=== PATIENT | female | born 1960 | race African-American/Black ===

== ENCOUNTER 2016-12-11 12:15 | Emergency (ER) | payer OTHER, MEDICAID ==
[~2016-12-11] VITALS: Ht 170.2 cm; Wt 72.0 kg
[~2016-12-11 12:15] MED LIST: ALBU2.5V36 NEB; AMIO200T2 PO; ATOR20TA38 PO; FURO40TA4 PO; LISI-313 PO; METO25TA7 PO; METO50TA16 PO; PANT40TA3 PO; SPIR25TA PO; WARF10TA PO
[2016-12-11 13:07] VITALS: Ht 170.2 cm; Wt 72.0 kg
--- NOTE | 2016-12-11 14:20 | ERD ---
ER Documentation Chief Complaint Date/Time DATE: 12/11/16 TIME: 14:16 Chief Complaint REDDY X 1 WEEK, LVAT IN PLACE HPI This is an extremely pleasant 56-year-old female who presents to the emergency room with 1 week of headache. She describes it as gradual in onset, usually in the morning and the evenings, unilateral. She denies any photophobia, photophobia. She denies any jaw claudication or vision changes. No recent falls or injuries. The patient does take Coumadin secondary to left ventricular assist device. She denies any shortness of breath, chest pain, pleuritic pain, no lower extremity swelling. She has taken Tylenol with only minimal relief. She was sent to the emergency room from her clinic for a CT of the brain. ROS All systems reviewed and are negative except as per history of present illness. Medications Home Meds Active Scripts Acetamin/Butalbital/Caffeine* (Fioricet*) [id number] Tab, 1 TAB PO Q6H Y for PAIN, #30 TAB Prov:GHADA ELLER MD 12/11/16 Reported Medications Vit No.78/Iron/FA (Prenatabs FA Tablet) 1 Each Tablet, 1 EACH PO DAILY , TAB 12/11/16 Aspirin* (Aspirin* Chew) 81 Mg Tab.chew, 81 MG PO DAILY, TAB.CHEW 12/11/16 Carvedilol* (Carvedilol*) 3.125 Mg Tablet, 3.125 MG PO BID, #60 TAB 12/11/16 Spironolactone* (Aldactone*) 25 Mg Tablet, 25 MG PO DAILY, #30 TAB 04/25/16 Amiodarone Hcl* (Amiodarone Hcl*) 200 Mg Tablet, 200 MG PO DAILY, #30 TAB 04/08/16 Discontinued Reported Medications Atorvastatin Calcium* (Atorvastatin Calcium*) 20 Mg Tablet, 20 MG PO QHS, #30 TAB 04/25/16 Pantoprazole* (Protonix*) 40 Mg Tablet.dr, 40 MG PO DAILY, TAB 04/08/16 Lisinopril* (Lisinopril*) 5 Mg Tablet, 5 MG PO DAILY, #30 TAB 04/08/16 Metoprolol Succinate* (Toprol XL*) 50 Mg Tab.er.24h, 50 MG PO QHS, #30 TAB 04/08/16 Metoprolol Succinate* (Toprol XL*) 25 Mg Tab.sr.24h, 37.5 MG PO DAILY, #30 TAB 04/08/16 Discontinued Scripts Furosemide (Lasix) 40 Mg Tab, 40 MG PO BID for 30 Days, TAB for 5 days then back to 20 mg bid Prov:TAYLOR HILLS 04/26/16 Warfarin Sodium* (Coumadin*) 10 Mg Tablet, 10 MG PO DAILY for 30 Days, TAB no need for new prescription Prov:TAYLOR HILLS 04/26/16 Albuterol Sulfate* (Albuterol Sulfate* Neb) 0.5%-0.5 Ml Neb, 2.5 MG NEB Q6H, # 30 VIAL Prov:EDITH HOPE MD 04/08/16 Allergies Allergies: Coded Allergies: No Known Allergy (Verified , 12/11/16) PMhx/Soc History of Surgery: Yes (AICD 2013, TUBAL LIGATION) Anesthesia Reaction: No Hx Neurological Disorder: No Hx Respiratory Disorders: Yes (COPD) Hx Cardiac Disorders: Yes (HTN, OR, CHF, PACER FIRED 01/2015) Hx Psychiatric Problems: No Hx Miscellaneous Medical Probl: Yes (ON HOME MILRINONE AT 3ML/HR) Hx Alcohol Use: No Hx Substance Use: No Hx Tobacco Use: No FmHx Family History: No diabetes Physical Exam Vitals Vital Signs Date Time Temp Pulse Resp B/P Pulse Ox O2 Delivery O2 Flow Rate FiO2 12/11/16 13:07 96.2 92 18 111/85 100 Physical Exam General: Well developed, well nourished, no acute distress Head: Normocephalic, atraumatic, no tenderness over the temporal artery Eyes: Pupils equally reactive, EOM intact ENT: Moist mucous membranes Neck: Supple, no lymphadenopathy Respiratory: Lungs clear bilaterally, no distress Cardiovascular: RRR, no murmurs, rubs, or gallops Abdominal: Soft, non-tender, non-distended, no peritoneal signs : Deferred MSK: No edema, no unilateral swelling, 5/5 strength Neurologic: Alert and oriented, moving all extremities, normal speech, no focal weakness, no cerebellar signs Skin: No rash Psych: Normal mood Results 24 hrs Laboratory Tests Test 12/11/16 14:00 Activated Partial Thromboplast Time 44.5Sec INR International Normalized Ratio 2.34 Prothrombin Time 25.9Sec Prothrombin Time Ratio 2.0 Procedures/MDM EKG, MONITORS, & DIAGNOSTIC IMAGING: CT brain: No acute intracranial process LAB INTERPRETATION: Therapeutic INR MEDICAL DECISION MAKING: The patient presents with gradual onset, unilateral headache. The patient's headache is unlikely related to serious etiology. The patient does not exhibit any clinical signs or symptoms, and has no risk factors to suggest headache etiology such as subarachnoid hemorrhage, acute vertebral or carotid dissection , intracranial mass, epidural, subdural hematoma, dural venous sinus thrombosis , giant cell arteritis, or pseudotumor cerebri. Based on her description of symptoms this does not appear to be related to a significant or serious etiology. However, the patient does take Coumadin. Her last INR was approximately 1 week ago and therapeutic. Her primary care team was concerned that this may relate to intracranial hemorrhage and has requested a CT of the brain. She was sent to the emergency room for the study. She is otherwise exquisitely well-appearing, resting comfortably. She has a nonfocal neurologic exam. ER COURSE: The patient continues to be well-appearing her CT results are normal and have been faxed to her primary, referring provider. The patient is safe for discharge. I kept the patient and/or family informed of laboratory and diagnostic imaging results throughout the emergency room course. DISPOSITION PLAN: We discussed follow up with the patient's primary care doctor within 24 to 48 hours as needed. We also discussed return to the emergency room for worsening symptoms or worsening condition. Discharge Medications: Fioricet. I recommended that she avoid taking this medication until cleared by her primary and cardiology team. I do not want adverse drug interactions given her left ventricular assist device. The patient verbalizes understanding. Departure Diagnosis: Primary Impression: Headache Headache type: tension-type Headache chronicity pattern: acute headache Intractability: not intractable Qualified Code: G44.209 - Acute non intractable tension-type headache Additional Impression: Left ventricular assist device present Condition: Stable GHADA ELLER MD Dec 11, 2016 14:20
[2016-12-11] MEDS ORDERED: CARV3.1260 PO (14:40)
[2016-12-11] MEDS ORDERED: ASPI81TA3 PO (14:40)
[2016-12-11] MEDS ORDERED: PREN-17 PO (14:40)
[2016-12-11 14:44] LABS: INR 2.34; PROTIME 25.9 Sec (12.2-14.2)
[2016-12-11 14:45] LABS: PARTIAL THROMBOPLASTIN TIME 44.5 Sec (25.0-35.0)
[2016-12-11] MEDS ORDERED: FIORICET PO (14:56)
--- NOTE | 2016-12-11 15:01 | RADRPT ---
PROCEDURE: CT Brain without contrast. CLINICAL INDICATION: Patient experiencing a headache. TECHNIQUE: A multiplanar CT of the brain was performed on a CT scanner utilizing axial imaging fro m the skull base through the vertex without IV contrast. The CTDIvol is 44.9 mGy and the DLP is 630 .2 mGycm. One or more of the following dose reduction techniques were utilized: Automated exposure control, adjustment of the mA and/or kV according to patient size, use of iterative reconstruction technique. COMPARISON: None FINDINGS: No evidence of intracranial hemorrhage or abnormal extra-axial fluid collection. The brain parenchyma is normal attenuation morphology with preservation of sanchez white differentiatio n and age appropriate size of the ventricles and subarachnoid spaces. The posterior fossa contents, brainstem, craniocervical junction, orbits, pituitary axis, paranasal sinuses, mastoid air cells, and calvarium are unremarkable. IMPRESSION: 1. No intracranial hemorrhage or acute intracranial abnormality. 2. If clinical symptoms persist, MRI may be considered as follow-up. RPTAT:AAJJ Physician Adin Date Time Electronically viewed and signed by Physician Adin on 12/11/2016 15:00 MERI/
== END 2016-12-11 15:38 | disposition home or self-care (01) ==
LOC: E/R 12:15
DX: G44.209 Tension-type headache, unspecified, not intractable (principal); R40.2252 Coma scale, best verbal response, oriented, at arrival to emergency department; I10 Essential (primary) hypertension; J44.9 Chronic obstructive pulmonary disease, unspecified; I50.9 Heart failure, unspecified; R40.2142 Coma scale, eyes open, spontaneous, at arrival to emergency department; R40.2362 Coma scale, best motor response, obeys commands, at arrival to emergency department; Z95.811 Presence of heart assist device; Z79.82 Long term (current) use of aspirin; Z79.01 Long term (current) use of anticoagulants
CPT/HCPCS: 70450; 85610; 85730

== ENCOUNTER 2018-04-06 03:22 | Emergency (ER) | END 2018-04-06 08:19 | disposition short-term general hospital (02) ==